=== PATIENT | female | born 2005 | race Caucasian/White ===

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

== ENCOUNTER 2023-01-23 08:26 | Outpatient (AMB) | payer BC, MEDICAID, SELFPAY ==
[2023-01-23 08:33] VITALS: BP 93/65; PULSE 95; BMI 36.1
--- NOTE | 2023-01-23 08:33 | A.OFFVIS_ITS ---
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 Patient reports that she has gone to emergency department few times for right upper quadrant pain. Patient had symptoms of severe abdominal discomfort not necessarily related to meals. Reports postprandial abdominal bloating. The pain is so severe that it causes nausea and vomiting. Patient had increase in liver enzymes that progressively increased within just couple months. Patient had normal ultrasound when reviewing her records. She had normal liver enzymes in September. On January 15 her ALT were elevated to 130 and 3 days later up to 159. Patient does report that she does not have much of appetite. She usually does not eat and then reports to occasionally binge on different food. Patient brought a list of food and meals that she has been having since her last visit in the ED. review list that was provided by the patient and noticed that patient had fairly healthy diet, however some of the food included mayonnaise fried egg, mac and cheese, long horn steak with mashed potatoes, barbecue ribs. Today patient states that she is feeling little better was prescribed sucralfate and has not started yet. Taking omeprazole on as needed basis. Patient reports that she is moving her bowels normally. However she admits that occasionally she will be constipated. Patient had a bowel movement today. Denies melena, hematochezia, unintentional weight loss or ribbon like stools. Patient denies any fever or chills. Patient was diagnosed with PCOS and was found to have large cysts on her right ovary. Patient underwent surgery. [facility] Medical History Endometriosis Surgical History Hx of ovarian cyst Family History Maternal Grandmother HTN (hypertension) High cholesterol Maternal Grandfather HTN (hypertension) High cholesterol Diabetes Cirrhosis of liver Paternal Grandmother HTN (hypertension) Social History Household Members: Family Alcohol intake: never Patient Tobacco Use Status: Never used Tobacco Review of Systems Const Denies weight gain and Denies weight loss ENT Reports no additional complaints, Denies dysphagia and Denies odynophagia Card Reports no additional complaints Resp Reports no additional complaints GI Reports abdominal pain (RUQ), Denies belching, Denies melena, Denies bloating, Denies change in bowel habits, Reports constipation, Denies dysphagia, Denies excessive flatus, Denies dyspepsia, Reports heartburn, Denies diarrhea, Denies loose stools, Reports nausea, Denies odynophagia and Reports vomiting Reports no additional complaints Musc Reports no additional complaints Neuro Reports no additional complaints Psych Reports no additional complaints Endo Reports no additional complaints Physical Exam Vital Signs: Last Vital Signs Pulse 95 01/23/23 08:33 BP 93/65 01/23/23 08:33 BMI result Body Mass Index 36.1 Const General: healthy appearing, no acute distress and well developed Nutritional Appearance: obese Orientation/consciousness: patient oriented x3 HEENT Head: Yes normal to inspection, Yes normocephalic and Yes atraumatic Face and sinus: Yes normal facial exam Mouth: Normal oral and palatal mucosa present Throat: Yes posterior oropharynx normal, Yes tonsils normal and Yes uvula midline Eyes General: appearance normal, both eyes and all related structures Neck Neck: Yes normal visual inspection, Yes full ROM and Yes trachea midline Thyroid: Thyroid normal Resp Effort & Inspection: normal respiratory effort, able to speak in complete sentences, no tracheal deviation and symmetric chest movement Auscultation: clear to auscultation bilaterally Cardio Rate: regular rate Heart sounds: S1 normal heart sound present and S2 normal heart sound present GI Inspection: Yes normal to inspection, No distended and Yes obesity Palpation (GI): Soft to palpation, not firm, nontender and No hepatosplenomegaly present Auscultation: normal bowel sounds General: Yes no CVA tenderness Back/Spine/Pelvis Back: no CVA tenderness Skin General skin exam: elasticity normal, turgor normal and dry skin Neuro General: patient oriented x3 Psych Appearance: grossly normal Mental Status: mental status grossly normal Speech and movement: Normal speech and movement present Affect: normal affect Assessment & Plan Assessment & Plan (1) RUQ abdominal pain: Code(s): R10.11 - Right upper quadrant pain Plan: Postprandial abdominal bloating. Patient reports that her pain is random does not necessarily happen after meals. Unsure if this is a biliary colic versus gas trapping pain causing cramping at hepatic flexure. Will send patient for a HIDA scan to rule out biliary dyskinesia, biliary duct occlusion. (2) Postprandial abdominal bloating: Code(s): R14.0 - Abdominal distension (gaseous) Plan: Occasional postprandial abdominal bloating depending on what she eats. Discussed with patient low FODMAP diet. List of food recommended as well as list of food to avoid given to patient (3) Epigastric discomfort: Code(s): R10.13 - Epigastric pain Plan: Continue taking sucralfate. Stop omeprazole and stabbing pantoprazole every morning half an hour before breakfast. Discussed with patient avoiding dietary triggers and late night snacking. Staying upright for minimum 3 hours after meals discussed with patient. (4) GERD (gastroesophageal reflux disease): Code(s): K21.9 - Gastro-esophageal reflux disease without esophagitis Qualifiers: Esophagitis presence: esophagitis presence not specified Qualified Code(s): K21.9 - Gastro-esophageal reflux disease without esophagitis Plan: Patient reports epigastric discomfort and reflux. Start pantoprazole. Take sucralfate at night time. Avoid NSAIDs. Dietary triggers and culprits discussed with patient. Will send patient to check her a lipase. Her last lipase was normal. Will repeat liver enzymes. If patient continues have the sy mptoms will consider checking H pylori and check for pancreatic insufficiency if she continues to be bloated and have epigastric discomfort. Patient does not have a left upper quadrant pain. Will check transglutaminase to rule out celiac. (5) IBS (irritable bowel syndrome): Code(s): K58.9 - Irritable bowel syndrome without diarrhea Qualifiers: Irritable bowel syndrome type: without diarrhea Qualified Code(s): K58.9 - Irritable bowel syndrome without diarrhea Plan: Postprandial abdominal bloating. Low FODMAP diet discussed with patient. As mentioned above list of food recommended as well as list of food to avoid given to patient. Discussed with her option of doing an elimination diet as well. Ordered MiraLax. Patient states that this helped her in the past emptying her bowels better. Patient was also encouraged to increase fluid intake and activity to promote better bowel motility. Discussed with patient weight loss and better food choices. I will see patient in 3 months, sooner on as needed basis. Both patient and her mom are agreeable this plan and verbalize understanding of instructions. They were given the opportunity to ask questions and all questions answered. Thank you for allowing me to participate in her care Orders: Orders Gamma Glutamyl Transpeptidase Today R74.8 - Abnormal levels of other serum enzymes Lipase Today R10.9 - Unspecified abdominal pain Liver Panel Today R10.9 - Unspecified abdominal pain TSH reflex Free T4 Today K59.00 - Constipation, unspecified Vitamin D 25-OH (D2 and D3) Today E55.9 - Vitamin D deficiency, unspecified Transglutaminase IgA Today R10.9 - Unspecified abdominal pain Transglutaminase Ab IgG Today R10.9 - Unspecified abdominal pain NM hepatobiliary w pharm Today R10.11 - Right upper quadrant pain Medications: New pantoprazole 20 mg PO DAILY 90 tabs 1RF polyethylene glycol 3350 (Miralax) 17 grams PO DAILY 510 grams 2RF Discontinued omeprazole Discontinued Reason: Doctor's Order 20 mg PO DAILY 30 caps 0RF Coding Level of Care Code New Pt Level 4 (56042) Diagnoses RUQ abdominal pain R10.11 Postprandial abdominal bloating R14.0 Epigastric discomfort R10.13 GERD (gastroesophageal reflux disease) K21.9 Esophagitis presence: esophagitis presence not specified IBS (irritable bowel syndrome) K58.9 Irritable bowel syndrome type: without diarrhea Time Spent (min) 45 Comment 30 minutes spent with patient and additional 15 minutes spent reviewing her records
== END 2023-01-23 09:22 | disposition home or self-care (01) ==
PROVIDERS: Visit Provider Nurse Practitioner Family
DX: R10.11 Right upper quadrant pain (principal); R14.0 Abdominal distension (gaseous); R10.13 Epigastric pain; K21.9 Gastro-esophageal reflux disease without esophagitis; K58.9 Irritable bowel syndrome, unspecified
CPT/HCPCS: 99204

== ENCOUNTER 2023-01-23 08:26 | Outpatient (REF) | payer BC, MEDICAID, SELFPAY ==
[2023-01-23 10:50] LABS: Alanine Aminotransferase 59 U/L (0-31); Albumin Level 4.1 g/dL (3.5-5.0); Alkaline Phosphatase 49 U/L (39-117); Aspartate Amino Transferase 15 U/L (5-31); Bilirubin Direct 0.2 mg/dL (0.0-0.5); Bilirubin Total 0.5 mg/dL (0.0-1.0); Lipase 18 U/L (8-78); Total Protein 7.2 g/dL (6.5-8.0)
[2023-01-23 11:01] LABS: Gamma Glutamyl Transpeptidase 28 U/L (7-33); TSH reflex Free T4 0.71 uIU/mL (0.32-4.0)
[2023-01-26 13:47] LABS: Transglutaminase Ab IgG <1.0 U/mL; Transglutaminase IgA <1.0 U/mL
[2023-01-28 16:42] LABS: Vitamin D 25-OH, D2 <4 ng/mL; Vitamin D 25-OH, D3 22 ng/mL; Vitamin D 25-OH, Total 22 ng/mL (30-100)
== END 2023-01-23 08:27 | disposition home or self-care (01) ==
LOC: HO.LAB 08:26
PROVIDERS: Visit Provider Nurse Practitioner Family
DX: R10.11 Right upper quadrant pain (principal); R14.0 Abdominal distension (gaseous); R10.13 Epigastric pain; K21.9 Gastro-esophageal reflux disease without esophagitis; K58.9 Irritable bowel syndrome, unspecified; K59.00 Constipation, unspecified; E55.9 Vitamin D deficiency, unspecified; R74.8 Abnormal levels of other serum enzymes
CPT/HCPCS: 36415; 80076; 82306; 82977; 83690; 84443; 86364

== ENCOUNTER 2023-02-09 12:26 | Outpatient (AMB) | payer BC, MEDICAID, SELFPAY ==
[2023-02-09 12:35] VITALS: BP 101/72; PULSE 130; BMI 35.5
--- NOTE | 2023-02-09 12:35 | MHC.OFFVIS ---
Intake Vital Signs 02/09/23 12:35 Height 5 ft 3 in Weight 200 lb 9.93 oz BMI 35.5 BP 101/72 Blood Pressure Location Lt brachial Position Sitting Pulse 130 H Intake Visit Reasons: follow up Intake Note: Eitan presents in office as a new.patient for a abdominal pain elevated liver enzymes PT CC: Patient was seen to the ER yesterday and diagnosed with mesenteric lymphadenitis. PT reports having abdominal, constipation, bloating, vomiting and nausea. Denies other GI symptoms. 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 Patient reports that her pain is random does not necessarily happen after meals.? Unsure if this is a biliary colic versus gas trapping pain causing cramping at hepatic flexure.? Will send patient for a HIDA scan to rule out biliary dyskinesia, biliary duct occlusion. (2) Postprandial abdominal bloating: ?Code(s): R14.0 - Abdominal distension (gaseous) ?Plan: Occasional postprandial abdominal bloating depending on what she eats.? Discussed with patient low FODMAP diet.? List of food recommended as well as list of food to avoid given to patient (3) Epigastric discomfort: ?Code(s): R10.13 - Epigastric pain ?Plan: Continue taking sucralfate.? Stop omeprazole and stabbing pantoprazole every morning half an hour before breakfast.? Discussed with patient avoiding dietary triggers and late night snacking.? Staying upright for minimum 3 hours after meals discussed with patient. (4) GERD (gastroesophageal reflux disease): ?Code(s): K21.9 - Gastro-esophageal reflux disease without esophagitis ?Qualifiers: ?Esophagitis presence:?esophagitis presence not specified? Qualified Code(s):?K21.9 - Gastro-esophageal reflux disease without esophagitis ?Plan: Patient reports epigastric discomfort and reflux.? Start pantoprazole.? Take sucralfate at night time.? Avoid NSAIDs.? Dietary triggers and culprits discussed with patient.? Will send patient to check her a lipase.? Her last lipase was normal.? Will repeat liver enzymes.? If patient continues have the symptoms will consider checking H pylori and check for pancreatic insufficiency if she continues to be bloated and have epigastric discomfort.? Patient does not have a left upper quadrant pain.? Will check transglutaminase to rule out celiac. (5) IBS (irritable bowel syndrome): ?Code(s): K58.9 - Irritable bowel syndrome without diarrhea ?Qualifiers: ?Irritable bowel syndrome type:?without diarrhea? Qualified Code(s):?K58.9 - Irritable bowel syndrome without diarrhea ?Plan: Postprandial abdominal bloating.? Low FODMAP diet discussed with patient.? As mentioned above list of food recommended as well as list of food to avoid given to patient.? Discussed with her option of doing an elimination diet as well.? Ordered MiraLax.? Patient states that this helped her in the past emptying her bowels better.? Patient was also encouraged to increase fluid intake and activity to promote better bowel motility.? Discussed with patient weight loss and better food choices.? I will see patient in 3 months, sooner on as needed basis.? Both patient and her mom are agreeable this plan and verbalize understanding of instructions.? They were given the opportunity to ask questions and all questions answered.? TODAY'S VISIT Patient is here today for requested visit after being seen in the emergency department at [facility] yesterday. Patient has severe abdominal discomfort, nausea, unable to move her bowels for the last 4 days. When seen in the ER yesterday patient received pain medication, sent home with do a lax. CT scan showed right-sided mesenteric adenitis, mild intestinal ileus and large ovarian cyst. Patient had as mentioned on previous visits right ovarian cyst surgery twice in September and October. Pain could be related to adhesions. Patient did not had ultrasound yesterday. Ultrasound in August did not show any cyst on her left ovary. Ultrasound in December was done limited of the gallbladder only. Patient has a history of spina bifida and has most likely always had decreased motility of her bowels. Patient is here with her mother who is a nurse practitioner and is very concerned about her daughter's health. Patient denies acid reflux, dyspepsia, dysphagia or odynophagia. Denies melena, hematochezia, unintentional weight loss or ribbon like stools. When seen in the ER yesterday patient was recommended by provider there to be admitted for observation, however patient declined as she was hoping she will have bowel movement and will start feeling better. REPLACED BY [facility] Medical History Endometriosis Surgical History Hx of ovarian cyst Family History Maternal Grandmother HTN (hypertension) High cholesterol Maternal Grandfather HTN (hypertension) High cholesterol Diabetes Cirrhosis of liver Paternal Grandmother HTN (hypertension) Social History Household Members: Family Alcohol intake: never Patient Tobacco Use Status: Never used Tobacco Review of Systems Const Denies weight gain and Denies weight loss ENT Reports no additional complaints, Denies dysphagia and Denies odynophagia Card Reports no additional complaints Resp Reports no additional complaints GI Reports abdominal pain, Denies belching, Denies melena, Reports bloating, Denies change in bowel habits, Reports constipation, Denies dysphagia, Denies excessive flatus, Denies dyspepsia, Denies heartburn, Denies diarrhea, Denies loose stools, Reports nausea, Denies odynophagia and Denies vomiting Reports no additional complaints Musc Reports no additional complaints Neuro Reports no additional complaints Psych Reports no additional complaints Endo Reports no additional complaints Physical Exam Vital Signs: Last Vital Signs Pulse 130 H 02/09/23 12:35 BP 101/72 02/09/23 12:35 BMI result Body Mass Index 35.5 Const General: healthy appearing, no acute distress and well developed Nutritional Appearance: obese Orientation/consciousness: patient oriented x3 HEENT Head: Yes normal to inspection, Yes normocephalic and Yes atraumatic Face and sinus: Yes normal facial exam Mouth: Normal oral and palatal mucosa present Throat: Yes posterior oropharynx normal, Yes tonsils normal and Yes uvula midline Eyes General: appearance normal, both eyes and all related structures Neck Neck: Yes normal visual inspection, Yes full ROM and Yes trachea midline Thyroid: Thyroid normal Resp Effort & Inspection: normal respiratory effort, able to speak in complete sentences, no tracheal deviation and symmetric chest movement Auscultation: clear to auscultation bilaterally Cardio Rate: regular rate Heart sounds: S1 normal heart sound present and S2 normal heart sound present GI Inspection: Yes normal to inspection, No distended and Yes obesity Palpation (GI): Soft to palpation, not firm, nontender and No hepatosplenomegaly present Auscultation: normal bowel sounds (LUQ, LLQ) and Hypoactive bowel sounds present (RL/UQ) General: Yes no CVA tenderness Back/Spine/Pelvis Back: no CVA tenderness Skin General skin exam: elasticity normal, turgor normal and dry skin Neuro General: patient oriented x3 Psych Appearance: grossly normal Mental Status: mental status grossly normal Speech and movement: Normal speech and movement present Affect: normal affect Attitude: cooperative Thought process: Normal thought process present Thought content: Normal thought content present Insight: Good insight present (Psych) Judgement: Good judgement present (Psych) Assessment & Plan Assessment & Plan (1) RUQ abdominal pain: Code(s): R10.11 - Right upper quadrant pain Plan: Right-sided abdominal pain, however today patient reports that her pain is throughout the whole abdomen. Awaiting to get a HIDA scan, however I feel that her pain is related possibly to adhesions from to laparoscopic surgeries just few months ago. Patient was encouraged to side dicyclomine due to her decreased bowel mobility. (2) Postprandial abdominal bloating: Code(s): R14.0 - Abdominal distension (gaseous) Plan: Postprandial abdominal bloating most likely related to inability to move her bowels. Patient does have a positive bowel sounds in the left upper and left lower quadrant diminished in the right upper and right lower quadrant. Patient is passing gas able to have a small amount of stool, incomplete emptying for the last 4 days (3) Mesenteric adenitis: Code(s): I88.0 - Nonspecific mesenteric lymphadenitis Plan: Mesenteric adenitis, reviewed results posted on patient's portal that and does not mention that, however patient instructions states that she does have a mesenteric adenitis. Patient's mother will try to get the results and CD from [facility]. Patient reports that provider spoke to radiologist on the phone about her results. If patient continues with pain she will need to return to emergency department especially if she is not going to have a bowel movement. (4) Ileus: Code(s): K56.7 - Ileus, unspecified Plan: Ileus was also reported on the CT scan. Secondary to pain or possibly due to adhesions that could be causing that as well. Patient will need to move her bowels better. Will start her on Reglan, patient is to be on clear liquid diet and take Reglan twice a day for the next couple days before meals. Patient will also take milk of magnesia and take Linzess. However patient was instructed to drink plenty fluids. Patient ready took Senokot in Dulcolax and was unable to pass bowels. Patient was instructed that she must go to the emergency department if she is continuing to be nauseous and vomiting and is unable to pass gas. (5) Chronic idiopathic constipation: Code(s): K59.04 - Chronic idiopathic constipation Plan: Chronic constipation, not on any actual daily management. I believe patient should be on something every day, however today she presents as more acute. Will need to take Reglan to help stimulate her small bowel avoid taking Zofran as that can contribute to constipation and could also cause ileus. (6) Epigastric pain: Code(s): R10.13 - Epigastric pain Plan: Patient continues with epigastric pain, however does not have any acid reflux or dyspepsia. Patient will be scheduled for upper endoscopy on Sunday. Continue pantoprazole (7) Nausea and vomiting in adult: Code(s): R11.2 - Nausea with vomiting, unspecified Plan: Reglan twice a day, N/V most likely related to inability to pass her bowels, however it could be related to gastritis, patient is going for upper endoscopy on Sunday. Patient and her mom were instructed to return to emergency department if she continues to have nausea and vomiting, unable to keep any fluids down. Unable to move her bowels, decrease gas, increase bloating. Both patient and her mom are agreeable to plan of care and verbalize understanding of instructions. They were given the opportunity to ask questions and all questions answered. Thank you for allowing me to participate in her care Medications: New metoclopramide HCl (Reglan) Take 15 minutes before meals 5 mg PO BID PRN 10 tabs 0RF nausea and vomiting R11.0 - Nausea linaclotide (Linzess) 145 mcg PO DAILY 30 caps 2RF Coding Level of Care Code Est Pt Level 5 (15523) Diagnoses RUQ abdominal pain R10.11 Postprandial abdominal bloating R14.0 Mesenteric adenitis I88.0 Ileus K56.7 Chronic idiopathic constipation K59.04 Epigastric pain R10.13 Nausea and vomiting in adult R11.2 Time Spent (min) 50 Comment 30 minutes spent with patient and additional 20 minutes spent reviewing her records
== END 2023-02-09 13:22 | disposition home or self-care (01) ==
PROVIDERS: Visit Provider Nurse Practitioner Family
DX: I88.0 Nonspecific mesenteric lymphadenitis (principal); K56.7 Ileus, unspecified; K59.04 Chronic idiopathic constipation; R11.2 Nausea with vomiting, unspecified
CPT/HCPCS: 99213

== ENCOUNTER → 2023-02-09 12:26 | Outpatient (BNVA) | payer BC, MEDICAID, SELFPAY | PROVIDERS: Visit Provider Nurse Practitioner Family ==

== ENCOUNTER 2023-02-09 17:44 | Emergency (ER) | payer BC, MEDICAID, SELFPAY ==
--- NOTE | 2023-02-09 17:56 | ED_ITS ---
patient left after initial evaluation I did not see the patient HPI - General Adult General Chief complaint: Abdominal Pain Stated complaint: abd pain, seen by GI today. Related Data Previous Rx's Medication Instructions Recorded ibuprofen 800 mg tablet 800 mg PO Q8H PRN pain #30 tabs 08/09/22 pantoprazole 20 mg tablet,delayed 20 mg PO DAILY #90 tabs 01/23/23 release polyethylene glycol 3350 17 17 g PO DAILY #510 grams 01/23/23 gram/dose oral powder (Miralax) ondansetron 4 mg disintegrating 4 mg PO Q8H PRN nausea and 02/07/23 tablet vomiting #14 tabs sennosides 8.6 mg tablet (Natural 8.6 mg PO BEDTIME constipation #90 02/07/23 Senna Laxative) tabs linaclotide 145 mcg capsule 145 mcg PO DAILY #30 caps 02/09/23 (Linzess) metoclopramide HCl 5 mg tablet 5 mg PO BID PRN nausea and 02/09/23 (Reglan) vomiting #10 tabs Allergies Allergy/AdvReac Type Severity Reaction Status Date / Time No Known Allergies Allergy Verified 01/23/23 08:34 [facility] Past Medical History Medical History Endometriosis Surgical History Hx of ovarian cyst Family History Family History Maternal Grandmother HTN (hypertension) High cholesterol Maternal Grandfather HTN (hypertension) High cholesterol Diabetes Cirrhosis of liver Paternal Grandmother HTN (hypertension) Social History Social History Household Members: Family Alcohol intake: never Patient Tobacco Use Status: Never used Tobacco Advance Directives: No Advance Directives Information Provided: No Physical Exam ED Vital Signs: BMI result Body Mass Index 35.4 Course Course Course Narrative: This is a rapid medical exam: Additional HPI, ROS, PE not included below will be deferred to primary provider. Patient is a 17-year-old female presenting to the emergency department with mother complaining of abdominal pain and nausea. Was seen at [facility], diagnosed with mild ileus/mesenteric lymphadenitis. Saw GI today, started on Linzess, has been using senna and reglan without relief. Also has an 8cm ovarian cyst. Mother reports patient has been unable to pass gas today. Plan: labs, Medical Decision Making Lab Data 02/09/23 20:21 02/09/23 20:21 Labs: Lab Results 02/09/23 02/09/23 Range/Units 20:21 20:21 WBC 11.2 H (4.8-10.8) X10*3/uL RBC 4.59 (4.20-5.50) X10*6/uL Hgb 13.5 (12.0-16.0) g/dl Hct 38.2 (37.0-47.0) % MCV 83.2 (80.0-98.0) fL MCH 29.4 (27.0-33.0) pg MCHC 35.3 H (31.0-35.0) g/dl RDW 12.1 (11.0-16.0) % Plt Count 173 (160-400) X10*3/uL MPV 12.4 H (9.4-12.3) fL Immature Gran % (Auto) 0.3 (0.0-0.4) % Neut % (Auto) 62.5 (45-73) % Lymph % (Auto) 26.7 (20-40) % [place] % (Auto) 9.2 (2-11) % Eos % (Auto) 0.9 (0-4) % Baso % (Auto) 0.4 (0-2) % Lymph # (Auto) 3.0 (1.2-4.9) X10*3/uL [place] # (Auto) 1.0 (0.1-1.2) X10*3/uL Eos # (Auto) 0.1 (0.0-0.4) X10*3/uL Baso # (Auto) 0.1 (0.0-0.2) X10*3/uL Abs Immat Gran (auto) 0.03 (0.00-0.03) X10*3/uL Absolute Neuts (auto) 7.0 (2.0-8.3) x10*3/uL Absolute Nucleated RBC 0.000 (0.0-0.012) X10*3/uL Nucleated RBC % (auto) 0.0 (0.0-0.2) /100WBC Sodium 141 (135-145) mmol/L Potassium 3.8 (3.3-5.1) mmol/L Chloride 105 (96-108) mmol/L Carbon Dioxide 21 L (22-29) mmol/L Anion Gap 19 (12-20) BUN 9 (9-16) mg/dL Creatinine 0.77 (0.5-1.4) mg/dL Estim Creat Clear Calc 125.6 Estimated GFR > 60 Random Glucose 85 (60-115) mg/dL Calcium 9.8 (8.4-10.2) mg/dL Total Bilirubin 0.5 (0.0-1.0) mg/dL AST 18 (5-31) U/L ALT 31 (0-31) U/L Alkaline Phosphatase 52 (39-117) U/L Total Protein 7.7 (6.5-8.0) g/dL Albumin 4.4 (3.5-5.0) g/dL Beta HCG, Quant < 2 mIU/mL Discharge Plan Discharge Clinical Impression: Abdominal pain Patient Disposition: Elopement Prescriptions: No Action sennosides [Natural Senna Laxative] 8.6 mg tablet 8.6 mg PO BEDTIME Qty: 90 3RF ondansetron 4 mg tablet,disintegrating 4 mg PO Q8H PRN (Reason: nausea and vomiting) Qty: 14 0RF ibuprofen 800 mg tablet 800 mg PO Q8H PRN (Reason: pain) Qty: 30 0RF pantoprazole 20 mg tablet,delayed release (DR/EC) 20 mg PO DAILY Qty: 90 1RF polyethylene glycol 3350 [Miralax] 17 gram/dose powder 17 g PO DAILY Qty: 510 2RF metoclopramide HCl [Reglan] 5 mg tablet 5 mg PO BID PRN (Reason: nausea and vomiting) Qty: 10 0RF Rx Instructions: Take 15 minutes before meals Linzess 145 mcg capsule 145 mcg PO DAILY Qty: 30 2RF Interventions: LWBS Worksheet Last Done: 02/09/23 22:45 Discharge Date/Time: 02/09/23 22:45
[2023-02-09 18:00] VITALS: BP 114/88; PULSE 90; RESP 18; TEMP 36.9; O2SAT 99; BMI 35.4
--- OUTSIDE RECORDS SUMMARY | 2023-02-09 19:48 | XMS_ITS | Continuity of Care Document ---
Author Name Unknown Organization [facility] al Address [address] [place] [address]- Care Team Providers Care Affiliate Marketing Manager Name Role Phone Not on Staff, PCP Primary Care Physician Unavail able Encounter [facility] Date(s): 02/07/23 - 02/08/[address] [address]- Discharge Disposition: A-D/C Home Attending Physician: Elba DESAI, Lluvia Anderson Admitting Physician: Lluvia Arreola MD Referring Physician: Not on Staff, Referring MD Allergies, Adverse Reactions, Alerts Substance Reaction Severity Status No known medicine allergy Ac tive Immunizations Given and Recorded Vaccine Date Status Refusal Reason influ virus vac, H1N1, inactive(oldterm) 09/13/09 Given influ virus vac, H1N1, inactive(oldterm) 08/05/09 Given Varicella Virus Vaccine 08/05/09 Given Varicella Virus Vaccine 1 04/06/04 Given Influenza Vaccine (oldterm) 08/05/09 Given influenza virus vaccine, inactivated 2 05/21/08 Gi doug influenza virus vaccine, inactivated 3 04/26/07 Gi doug Poliovirus Vaccine, Inactivated 04/26/07 Given Poliovirus Vaccine, Inactivated 4 03 Given Poliovirus Vaccine, Inactivated 5 03 Given Poliovirus Vaccine, Inactivated 6 03 Given Measles/Mumps/Rubella Virus Vaccine 04/26/07 Given Measles/Mumps/Rubella Virus Vaccine 7 04/06/04 Giv en Diphth/Pertussis,Acel/Tetanus (oldterm) 04/26/07 G iven Haemophilus B Conj Vaccine (oldterm) 8 08/16/04 Gi doug Haemophilus B Conj Vaccine (oldterm) 9 03 Gi doug Haemophilus B Conj Vaccine (oldterm) 10 03 G iven Haemophilus B Conj Vaccine (oldterm) 11 03 G iven Influenza Inactive (IM) (oldterm) 08/16/04 Given diphtheria/tetanus/pertussis, acel(DTaP) 12 08/16/04 Given diphtheria/tetanus/pertussis, acel(DTaP) 13 03 Given diphtheria/tetanus/pertussis, acel(DTaP) 14 03 Given diphtheria/tetanus/pertussis, acel(DTaP) 15 03 Given Pneumococcal Conjugate (PCV7) (oldterm) 16 07/06/04 Given Pneumococcal Conjugate (PCV7) (oldterm) 17 03 Given Pneumococcal Conjugate (PCV7) (oldterm) 18 03 Given Hepatitis B Vaccine (old term) 19 03 Given Hepatitis B Vaccine (old term) 20 03 Given Hepatitis B Vaccine (old term) 21 03 Given 1Admin Note: IZABELLA 2Admin Note: SANOFI 3Admin Note: SANOFI 4Admin Note: IPV 5Admin Note: IPV 6Admin Note: IPV 7Admin Note: MMR 8Admin Note: HIB 9Admin Note: HIB 10Admin Note: HIB 11Admin Note: HIB 12Admin Note: DTAP 13Admin Note: DTAP 14Admin Note: DTAP 15Admin Note: DTAP 16Admin Note: PCV7 17Admin Note: PCV7 18Admin Note: PCV7 19Admin Note: HEP B 20Admin Note: HEP B 21Admin Note: HEP B Medications Aerochamber See Instructions, # 2 each, Refills 1, Tot. Refills 1, use with albuterol; take one puff through spacer, breath in and hold, wait 1 minute then repeat, asthma; please dispense 2 (one for home and onefor school), 08/05/09 15:21:15, [facility], Milena, S... Start Date: 08/05/09 Status: Ordered albuterol CFC free 90 mcg/inh inhalation aerosol 2 puffs, Inhalation, 4 times a day, PRN for wheezing, # 2 each, 0 Refills, Maintenance, Aerosol Start Date: 05/30/10 Status: Ordered Claritin 5 mg oral tablet, chewable 2 tablet = 10 mg, Chew, Every 24 hours, # 60 tablet, 6 Refills Start Date: 01/04/09 Stop Date: 02/02/09 Status: Ordered MorPHINE Inj 8 mg, Injection, Intramuscular, Once, Hold for: SBP <90, *or* SpO2 <90, *or* Resp rate <10, PRN for Other, Pain >4/10, STAT, 02/08/23 5:00:00 EDT Start Date: 02/08/23 Stop Date: 02/08/23 Status: Completed multivitamin with fluoride Multiple Vitamins with Fluoride 0.5 mg oral tablet, chewable 1 tablet, Chew, Daily, # 100 tablet, 3 Refills, Maintenance, Chew Tablet Start Date: 10/26/10 Status: Ordered multivitamin with fluoride Multiple Vitamins with Fluoride 1 mg oral tablet, chewable 1 tablet, Chew, Daily, # 90 tablet, 3 Refills, Chew Tablet Start Date: 08/05/09 Stop Date: 09/04/09 Status: Ordered Nix Cream Rinse 1% solution 1 application, Topically, Once, to clean hair and scalp, leave in for 10 minutes then rinse with water, # 60 mL, 1 Refills, Maintenance, Solution Start Date: 03/22/11 Status: Ordered ProAir HFA 90 mcg/inh inhalation aerosol with adapter 2 puffs, Inhalation, Every 4 to 6 hours, PRN Wheezing/Shortness of Breath, # 2 each, 1 Refills, asthma; please dispense 2 (one for home and one for school) Start Date: 08/05/09 Stop Date: 09/04/09 Status: Ordered Problem List Condition Confirmation Course Effective Dates Status Health St atus Informant Allergic rhinitis Confirmed Active Asthma Confirmed Active Results Radiology Reports * Exam Date Time Procedure Performing Provider Status 02/08/23 5:[address] Abdomen and Pelvi s W/O Contrast Marita Mendoza; Aleksander (Verified) Notes: (CT Abdomen and Pelvis W/O Contrast) Reason For Exam: right sided abd pain;Pain RESULT: CT Abdomen and Pelvis W/O Contrast CT Abdomen and Pelvis W/O Contrast INDICATION/CLINICAL QUESTION: Low back pain. Abdominal pain. TECHNIQUE: Spiral CT through the abdomen and pelvis without IV contrast formatted in 3 planes. The study was performed without oral contrast. Weight- based protocol using automatic tube modulation wasused to optimize exposure parameters. CTDIvol Body: 17.66 mGy, DLP Body: 869 mGy*cm. COMPARISON: 02/14/2022 FINDINGS: Nurse Researcher View Findings, Lines and Tubes: None.. Lower chest: There are no pleural effusions. There is no pericardial effusion. Diaphragm: Unremarkable. Liver: Normal. . Gallbladder: Normal size. No calcified stones.. Bile ducts: No intra or extra hepatic bile duct dilation. . Spleen: Normal. Pancreas: Normal. Adrenal Glands: Normal. Kidneys: Right Kidney: Normal. Left Kidney: Normal. Bladder: Normal. Blood vessels: No aneurysm of abdominal aorta or iliac arteries. . Stomach, Small bowel and Large Bowel: Stomach: No gross abnormality seen. Small Bowel: No small bowel dilatation or gross inflammatory change. Large Bowel: No large bowel dilatation or gross inflammatory change. The Appendix is normal. Reproductive/Pelvic organs: There is no pelvic mass or fluid collection. Peritoneum, Retroperitoneum, Omentum, and Mesentery: There is no free air. There is no ascites. Lymph nodes: No adenopathy. Abdominal wall: No abdominal wall hernia. Bones: No compression fracture, spondylolysis, or spondylolisthesis. No fracture or bony pelvis and proximal femurs. IMPRESSION: 1. No acute abnormality seen that would explain patient's symptoms. WSN: [id number] Ordering Physician: Lluvia Arreola Dictated By: Lakhwinder Monge MD Dictated Date/Time: 02/08/23 7:40 am Reviewed By: Lakhwinder Monge MD Signed By: Lakhwinder Monge MD Signed Date/Time: 02/08/23 7:40 am Transcribed By: DIDI Transcribed Date/Time: 02/08/23 7:30 am Vital Signs Most recent to oldest [Reference Range]: 1 2 3 Height 160 cm (02/08/23 6:11 AM) 160 cm (02/08/23 5:09 AM) 160 cm (02/08/23 2:20 AM) Weight 91.9 kg (02/08/23 6:11 AM) 91.9 kg (02/08/23 5:09 AM) 91.9 kg (02/08/23 2:20 AM) Oxygen Saturation [94-100 %] 99 % (02/08/23 6:11 AM) 98 % (02/08/23 5:09 AM) 99 % (02/08/23 2:20 AM) Pulse Rate [55-90 bpm] 74 bpm (02/08/23 6:11 AM) 78 bpm (02/08/23 5:09 AM) 81 bpm (02/08/23:20 AM) Body Mass Index [18.5-24.99 kg/m2] 35.9 kg/m2 *>HHI* (02/08/23 6:11 AM) 35.9 kg/m2 *>HHI* (02/08/23 5:09 AM) 35.9 kg/m2 *>HHI* (02/08/23:20 AM) Blood Pressure [90-138/55-84 mm Hg] 114/72mm Hg (02/08/23 6:11 AM) 108/74mm Hg (02/08/23:09 AM) 120/86mm Hg (02/08/23:20 AM) Respiratory Rate [16-30 br/min] 15 br/min *L* (02/08/23 6:11 AM) 15 br/min *L* (02/08/23 5:37 AM) 15 br/min *L* (02/08/23 5:09 AM) Temperature [96.8-100.4 DegF] 98.1 DegF (02/08/23 6:11 AM) 98.1 DegF (02/08/23 5:09 AM) 98.1 DegF (02/08/23 2:05 AM) Mode of Delivery (Oxygen) Room air (02/08/23 6:11 AM) Room air (02/08/23 5:09 AM) Room air (02/08/23:20 AM) Blood pressure sites Arm, left (02/08/23 6:11 AM) Arm, left (02/08/23 5:09 AM) Arm, left (02/08/23 2:20 AM) Temperature Route Oral (02/08/23 6:11 AM) Oral (02/08/23 5:09 AM) Oral (02/08/23:20 AM) Dry Weight 91.9 kg (02/08/23 6:11 AM) 91.9 kg (02/08/23 5:09 AM) 91.9 kg (02/08/23 2:20 AM) Height Percentile 30.37 % 1 (02/08/23 6:11 AM) 30.37 % 2 (02/08/23 5:09 AM) 30.37 % 3 (02/08/23 2:20 AM) Height ZScore -0.51 4 (02/08/23 6:11 AM) -0.51 5 (02/08/23 5:09 AM) -0.51 6 (02/08/23 2:20 AM) Weight Percentile Per Age 97.61 % 7 (02/08/23 6:11 AM) 97.61 % 8 (02/08/23 5:09 AM) 97.61 % 9 (02/08/23 2:20 AM) BMI Percentile 97.37 10 (02/08/23 6:11 AM) 97.37 11 (02/08/23 5:09 AM) 97.37 12 (02/08/23 2:20 AM) BMI ZScore 1.94 13 (02/08/23 6:11 AM) 1.94 14 (02/08/23 5:09 AM) 1.94 15 (02/08/23 2:20 AM) Weight ZScore 1.98 16 (02/08/23 6:11 AM) 1.98 17 (02/08/23 5:09 AM) 1.98 18 (02/08/23 2:20 AM) 1Result Comment: ^~:!Percentile Source -CDC/WHO 2Result Comment: ^~:!Percentile Source -CDC/WHO 3Result Comment: ^~:!Percentile Source -CDC/WHO 4Result Comment: ^~:!ZScore Source -CDC/WHO 5Result Comment: ^~:!ZScore Source -CDC/WHO 6Result Comment: ^~:!ZScore Source -CDC/WHO 7Result Comment: ^~:!Percentile Source -CDC/WHO 8Result Comment: ^~:!Percentile Source -CDC/WHO 9Result Comment: ^~:!Percentile Source -CDC/WHO 10Result Comment: ^~:!Percentile Source -CDC/WHO 11Result Comment: ^~:!Percentile Source -CDC/WHO 12Result Comment: ^~:!Percentile Source -CDC/WHO 13Result Comment: ^~:!ZScore Source -CDC/WHO 14Result Comment: ^~:!ZScore Source -CDC/WHO 15Result Comment: ^~:!ZScore Source -[facility]/WHO 16Result Comment: ^~:!ZScore Source -[facility]/WHO 17Result Comment: ^~:!ZScore Source -[facility]/WHO 18Result Comment: ^~:!ZScore Source -[facility]/WHO Social History Social History Type Response Smoking Status Never (less than 100 in lifetime) entered on: 02/14/22 Sex Note * Elba DESAI, Lluvia Anderson: PERFORM Event Display: Patient Education Leaflets Authored Date: [id number] Mesenteric Adenitis ?? [id number] Mesenteric Adenitis The mesentery is a sheet of tissue that attaches the intestines to the belly (abdominal) wall. Lymph nodes are small glands throughout the body. They are part of the system that fights infection. Mesenteric adenitis is swelling of the lymph nodes in the mesentery. It's also called mesenteric lymphadenitis.??The problem is caused by an infection, or an inflammatory condition,??often of the intestines. Mesenteric adenitis can cause these symptoms: ??? Severe pain in the abdomen, which can be all over ??? Pain can be in the lower right side, sometimes mimicking appendicitis ??? Nausea and vomiting ??? Diarrhea ??? Fever ??? Loss of appetite ???Malaise This condition can be hard??to diagnose because the pain is often??not just in one spot. You may need tests for this reason. Sometimes, the pain shifts to the lower right part of your abdomen. When this happens, it may seem like appendicitis. This is another reason for testing. The problem most often goes away in a few days up to a few weeks. If you have a bacterial infection, you may need to take antibiotics. Medicines may also be given to help relieve pain until the problem calms down. If symptoms don't go away, you may need more testing. Home care ??? Your healthcare provider may prescribe medicines for pain, nausea, or infection. Follow the healthcare provider's instructions when using these medicines. If you are given medicine for infection, take all of it as directed until it's gone, even if you feel better. ??? Rest until you feel better. ??? To help relieve abdominal pain, use a heating pad or hot water bottle, or soak a towel in warm water and place it on your belly. ??? If you have had diarrhea or vomiting, follow the guidelines you are given for what to eat and drink and what to avoid. ??? Drink plenty of fluids. ??? Don???t smoke or drink alcohol. ?? Follow-up care Follow up with your healthcare provider, or??as advised. It's often very hard to tell mesenteric adenitis apart from appendicitis. So close follow-up is needed. If X-rays or other tests such as ultrasound or CT scan were done,??a radiologist will look at them.You'll be told if there are changes. Call 911 Call 911 if any of these occur: ??? Trouble breathing ??? Confusion ??? Very drowsy or trouble waking up ??? Fainting or loss of consciousness ??? Fast heart rate? Chest pain ?? When to get medical advice Call your healthcare provider right away if any of these occur: ??? Fever of 100.4??F (38??C) or higher, or as directed by your provider ??? Pain not relieved with medicine, or pain that goes away and returns ??? Pain that gets worse over time or changes location ??? Pain that localizes to the right lower belly, and doesn't get better or gets worse ??? Severe diarrhea or vomiting ??? Severe headache ??? Few or no stools or gas ??? Little or no urine ??? Leg or foot cramps ??? Small, dark red dots on the skin ??? Belly swelling ??? Bloody stools? Last Reviewed Date: 2021 ?? 7517-5230 The [employer]. All rights reserved. This information is not intended as a substitute for professional medical care. Always follow your healthcare professional's instructions. ?? Patient Care team information Care Team Personnel Name: Not on Staff, PCP Position: [facility] Physician (General Medicine) Member Role: PCP Name: Elba DESAI, Lluvia Anderson Position: [facility] ED Medicine MD Member Role: Admitting Physician Address: Address: [address] [place] [id number]- Name: Brittani Zapata Position: [facility] ED TA [facility] Member Role: Patient Care Provider Name: Maynor RN, Sacha Knight Position: [facility] ED RN W/OE and Tasks Member Role: Patient Care Provider Care Team Related Persons Name: PRANAV BARGER Address: [address] [place] [address] Name: TANVIR ROTH Address: [address] [address]
[2023-02-09 20:26] LABS: MANUAL DIFF FLAG NO
[2023-02-09 20:46] LABS: Basophils Absolute Auto 0.1 X10*3/uL (0.0-0.2); Basophils Percent Auto 0.4 % (0-2); Eosinophils Absolute Auto 0.1 X10*3/uL (0.0-0.4); Eosinophils Percent Auto 0.9 % (0-4); Hematocrit 38.2 % (37.0-47.0); Hemoglobin 13.5 g/dl (12.0-16.0); Imm Gran Abs Auto 0.03 X10*3/uL (0.00-0.03); Imm Gran Pct Auto 0.3 % (0.0-0.4); Lymphocytes Percent Auto 26.7 % (20-40); Mean Corpuscular HGB Conc 35.3 g/dl (31.0-35.0); Mean Corpuscular Hemoglobin 29.4 pg (27.0-33.0); Mean Corpuscular Volume 83.2 fL (80.0-98.0); Mean Platelet Volume 12.4 fL (9.4-12.3); Monocytes Percent Auto 9.2 % (2-11); Neutrophils Percent Auto 62.5 % (45-73); Platelet Count 173 X10*3/uL (160-400); Red Blood Count 4.59 X10*6/uL (4.20-5.50); Red Cell Distribution Width 12.1 % (11.0-16.0); White Blood Count 11.2 X10*3/uL (4.8-10.8)
[2023-02-09 21:02] LABS: Alanine Aminotransferase 31 U/L (0-31); Albumin Level 4.4 g/dL (3.5-5.0); Alkaline Phosphatase 52 U/L (39-117); Anion Gap 19 (12-20); Aspartate Amino Transferase 18 U/L (5-31); Bilirubin Total 0.5 mg/dL (0.0-1.0); Blood Urea Nitrogen 9 mg/dL (9-16); Calcium 9.8 mg/dL (8.4-10.2); Carbon Dioxide 21 mmol/L (22-29); Chloride 105 mmol/L (96-108); Creatinine Clr Calc Pharmacy 125.6; Estimated Glomerular Filt Rate > 60; Glucose Random 85 mg/dL (60-115); HCG Quantitative < 2 mIU/mL; Potassium 3.8 mmol/L (3.3-5.1); Sodium 141 mmol/L (135-145); Total Protein 7.7 g/dL (6.5-8.0)
== END 2023-02-09 22:45 | disposition left against medical advice (07) ==
PROVIDERS: Registered Nurse Emergency; Emergency Provider Emergency Medicine
DX: R10.9 Unspecified abdominal pain (principal); Z79.899 Other long term (current) drug therapy
CPT/HCPCS: 36415; 80053; 84702; 85025; 99281; 99283

== ENCOUNTER 2023-02-12 11:55 | Day surgery (SDC) | payer BC, MEDICAID, SELFPAY ==
[2023-02-12 12:18] VITALS: BP 119/65; PULSE 81; RESP 16; TEMP 36.7; O2SAT 97; BMI 35.4
[2023-02-12] MEDS: Lactated Ringers 1,000 ML 100 ML IVCONT (12:44)
[2023-02-12 12:56] LABS: UPreg QC Valid YES; Urine Pregnancy NEGATIVE (NEGATIVE)
--- NOTE | 2023-02-12 12:58 | MHC.SHP ---
Pre-Procedural Eval Section A Date of Service: 02/12/23 Changes since office visit: Yes Patient answered all questions; No Cold of Flu in the past 2 weeks, No New Medical Problems and No Changes in Medication The History & Physical has been completed within 30 days and I have reviewed it.: Yes Section B Chief Complaint: Epigastric pain Allergies: Allergies Allergy/AdvReac Type Severity Reaction Status Date / Time No Known Allergies Allergy Verified 01/23/23 08:34 Plan Diagnosis/Plan: Change (proceed with EGD) I have reviewed the history and physical and performed a pertinent physical examination on my patient. No changes have occurred unless specified. Time Spent With Patient Time: Total time managing care of this patient today ____ minutes.
--- NOTE | 2023-02-12 13:01 | P.CONAN_ITS ---
[facility] Active Problems Active Problems: All Active Problems (Updated 02/12/23 @ 07:09 by Arianna Hooper NP) Abdominal pain (Acute) Past Medical History Medical History Endometriosis Functional capacity: bed bound Family History Family History Maternal Grandmother HTN (hypertension) High cholesterol Maternal Grandfather HTN (hypertension) High cholesterol Diabetes Cirrhosis of liver Paternal Grandmother HTN (hypertension) Surgical History Surgical History Hx of ovarian cyst History of Problems with Anesthesia: No Social History Social History Household Members: Family Alcohol intake: never Patient Tobacco Use Status: Never used Tobacco Advance Directives: No Advance Directives Information Provided: Yes Meds Allergies Allergy/AdvReac Type Severity Reaction Status Date / Time No Known Allergies Allergy Verified 01/23/23 08:34 Active Medications: Current Medications Lactated Ringer's (Lr) 1,000 mls @ 100 mls/hr IVCONT .Q10H JAGUAR Last Admin: 02/12/23 12:44 Dose: 100 mls/hr Exam Exam Date and Time: February 12, 2023 1301 Height,Weight and Vital Signs: Height 5 ft 3 in Weight 90.718 kg Last Vital Signs Temp 98.1 F 02/12/23 12:18 Pulse 81 02/12/23 12:18 Resp 16 02/12/23 12:18 BP 119/65 02/12/23 12:18 Pulse Ox 97 02/12/23 12:18 O2 Del Method Room Air 02/12/23 12:18 Pertinent Lab Results Pertinent Lab Results: Laboratory Tests 02/12/23 12:23 Urine Test NEGATIVE Airway Mallampati Class: II TM Dist: >3cm Neck ROM: Full Loose/Missing/Broken Teeth: No Heart: RRR Lungs: CTA Assessment and Plan Assessment Anesthesia Assessment: Anesthesia Plan Discussed and Chart Reviewed Final Anesthetic Review History of Problems with Anesthesia: No NPO: Yes ASA Class: I Final Preanesthetic Review: Meds/Allgs Chart Reviewed, Consent Obtained/Reviewed and Anes Risks/Benef Reviewed Patient Risk: Low Procedure Risk: Intermediate Anesthetic Plan Anesthetic Plan: MAC: Disposition: Standard PACU
--- NOTE | 2023-02-12 13:08 | W.PM.OPN ---
Operative Note Operative Note Date of Service: 02/12/23 Narrative: FLEXIBLE TRANSORAL UPPER GASTROINTESTINAL ENDOSCOPY WITH BIOPSIES Pre-op diagnosis: Upper abdominal pain, constipation Post-op diagnosis: Gastritis, healing gastric ulcer Endoscopist:? Loreto Tamez MD Anesthesia:?MAC Consent: Indications for the procedure and potential complications of bleeding, perforation, reaction to medications and missed diagnosis were discussed with the patient and informed consent was obtained. Instrument: Olympus GIF H 190 mid size upper endoscope Monitoring: Vital signs and clinical assessment, continuous EKG monitoring, Pulse oximetry, Carbon Dioxide monitoring and blood pressure monitoring were done throughout the procedure. Procedure: The patient was placed in the left lateral decubitis position and pre-procedure medications were administered and a bite block was placed. The endoscope was inserted into the mouth and advanced under direct vision to the third part of duodenum. A careful inspection was made as the upper endoscope was withdrawn including a retroflexed examination of the proximal stomach; Findings and interventions are described below. Findings: Larynx: Normal Esophagus: GE junction at 36 cms. No esophagitis or Mann's. Stomach: A 7-8 mm ulcer in the pre-pyloric area which appears to be healing - biopsied. Mild gastric erythema. Biopsies were obtained to check for Helicobacter pylori. Grade 2 flap valve on retroflexed examination of the cardia. Duodenum: Normal bulb and descending duodenum. Biopsies were obtained from 3rd part of the duodenum to check for celiac sprue Intervention: Biopsies as noted above Impression and Post Procedure Diagnosis: Endoscopy Findings: STOMACH: A 7-8 mm ulcer in the pre-pyloric area which appears to be healing - biopsied. Mild gastric erythema. Biopsies were obtained to check for Helicobacter pylori. DUODENUM: Normal - biopsied to check for celiac sprue PUD ? related to NSAIDS - pt admits to taking Ibuprofen 1-2 times a week. Plan: Await pathology results Patient has an appointment on 02/20/23 in the GI Clinic with Chioma Huang FNP-BC. Above findings were reviewed with the patient and Peptic Ulcer Disease handout was given in the discharge area Pt reported she had a BM over the weekend with partial improvement in abdominal pain and was advised to continue taking Linzess and pantoprazole daily.
[2023-02-12 13:28] VITALS: BP 102/67; PULSE 112; RESP 18; TEMP 36.2; O2SAT 97
[2023-02-12 13:45] VITALS: BP 103/68; PULSE 61; RESP 17; TEMP 36.1; O2SAT 99
== END 2023-02-12 14:15 | disposition home or self-care (01) ==
PROVIDERS: Anesthesiology; Visit Provider Internal Medicine Gastroenterology
PROC: 0DJ08ZZ Inspection of Upper Intestinal Tract, Via Natural or Artificial Opening Endoscopic (ICD-10-PCS; CPT 43235; principal; 2023-02-12 14:10)
DX: K29.50 Unspecified chronic gastritis without bleeding (principal); K25.9 Gastric ulcer, unspecified as acute or chronic, without hemorrhage or perforation; N80.9 Endometriosis, unspecified; R74.8 Abnormal levels of other serum enzymes
CPT/HCPCS: 43239; 81025; 88305; 88342

== ENCOUNTER → 2023-02-12 11:55 | Outpatient (BNV) | payer BC, MEDICAID, SELFPAY | PROVIDERS: Visit Provider Internal Medicine Gastroenterology | DX: R10.10 Upper abdominal pain, unspecified (principal); K59.00 Constipation, unspecified; K29.70 Gastritis, unspecified, without bleeding; K31.7 Polyp of stomach and duodenum | CPT/HCPCS: 43239 ==

== ENCOUNTER → 2023-02-23 07:58 | Outpatient (REF) | payer BC, MEDICAID, SELFPAY ==
--- NOTE | ~2023-02-23 | NM_ITS ---
EXAMINATION: BILIARY TRACT IMAGING STUDY WITH CCK CLINICAL INFORMATION: Right upper quadrant abdominal pain.. COMPARISON: Right upper quadrant abdominal ultrasound done on 12/07/[address] scan of the abdomen and pelvis done on 08/13/2022.. TECHNIQUE: Serial gamma scintillation camera images were obtained over the abdomen for a total observation period of 60 minutes following the intravenous administration of 5 mCi Tc-99m mebrofenin. FINDINGS: There is good concentration of activity in the liver by 5 minutes post injection. Biliary activity is visualized by 10 minutes. The gallbladder is well visualized by 24 minutes. Small bowel is well visualized by 30 minutes. At 60 minutes post radiopharmaceutical injection, a 30-minute infusion of 1.8 micrograms Sincalide was then begun and an additional 30 minutes of images were obtained. There is good emptying of the gallbladder. By the end of the study there is good clearance of activity from the liver and visualization of diffuse small bowel activity. The calculated gallbladder ejection fraction is 54% (normal gallbladder ejection fraction is greater than 35%). NM/NM hepatobiliary w pharm IMPRESSION: Visualization of the gallbladder is evidence of a patent cystic duct and strong evidence against the diagnosis of acute cholecystitis. The common bile duct is patent. Gallbladder emptying and ejection fraction are normal. Liver function appears normal.
== END ==
LOC: HO.NUCMED 07:58
PROVIDERS: Visit Provider Nurse Practitioner Family
DX: R10.11 Right upper quadrant pain (principal)
CPT/HCPCS: 78227; A9537; J2805

== ENCOUNTER 2023-03-14 14:49 | Outpatient (AMB) | payer MEDICAID, SELFPAY ==
[2023-03-14 14:52] VITALS: BP 113/75; PULSE 89; BMI 35.3
--- NOTE | 2023-03-14 14:52 | A.OFFVIS_ITS ---
Intake Vital Signs 03/14/23 14:52 Height 5 ft 3 in Weight 199 lb 4.766 oz BMI 35.3 BP 113/75 Blood Pressure Location Lt brachial Position Sitting Pulse 89 Intake Visit Reasons: follow up for EGD Intake Note: Eitan presents in office as a est.patient for a post-op f/u for EGD pt got it done 8.7.23 PT CC: pt reports having abdominal pain , diarrhea, bloating pt denies any other GI Issues Malt Specifications Control Assistant Required: No Accompanied by: Self / Same As Patient Allergies No Known Allergies Allergy (Verified 03/14/23 14:53) HPI follow up for EGD HPI Details LAST VISIT RUQ abdominal pain Right-sided abdominal pain, however today patient reports that her pain is throughout the whole abdomen. Awaiting to get a HIDA scan, however I feel that her pain is related possibly to adhesions from to laparoscopic surgeries just few months ago. Patient was encouraged to side dicyclomine due to her decreased bowel mobility. Postprandial abdominal bloating Postprandial abdominal bloating most likely related to inability to move her bowels. Patient does have a positive bowel sounds in the left upper and left lower quadrant diminished in the right upper and right lower quadrant. Patient is passing gas able to have a small amount of stool, incomplete emptying for the last 4 days Mesenteric adenitis Mesenteric adenitis, reviewed results posted on patient's portal that and does not mention that, however patient instructions states that she does have a mesenteric adenitis. Patient's mother will try to get the results and CD from [facility]. Patient reports that provider spoke to radiologist on the phone about her results. If patient continues with pain she will need to return to emergency department especially if she is not going to have a bowel movement. Ileus Ileus was also reported on the CT scan. Secondary to pain or possibly due to adhesions that could be causing that as well. Patient will need to move her bowels better. Will start her on Reglan, patient is to be on clear liquid diet and take Reglan twice a day for the next couple days before meals. Patient will also take milk of magnesia and take Linzess. However patient was instructed to drink plenty fluids. Patient ready took Senokot in [place] and was unable to pass bowels. Patient was instructed that she must go to the emergency department if she is continuing to be nauseous and vomiting and is unable to pass gas. Chronic idiopathic constipation Chronic constipation, not on any actual daily management. I believe patient should be on something every day, however today she presents as more acute. Will need to take Reglan to help stimulate her small bowel avoid taking Zofran as that can contribute to constipation and could also cause ileus. Epigastric pain Patient continues with epigastric pain, however does not have any acid reflux or dyspepsia. Patient will be scheduled for upper endoscopy on Sunday. Continue pantoprazole Nausea and vomiting in adult Reglan twice a day, N/V most likely related to inability to pass her bowels, however it could be related to gastritis, patient is going for upper endoscopy on Sunday. Patient and her mom were instructed to return to emergency department if she continues to have nausea and vomiting, unable to keep any fluids down. Unable to move her bowels, decrease gas, increase bloating. Both patient and her mom are agreeable to plan of care and verbalize understanding of instructions. They were given the opportunity to ask questions and all questions answered. ? Thank you for allowing me to participate in her care Plan Medications New metoclopramide HCl (Reglan) Take 15 minutes before meals 5 mg PO BID PRN 10 tabs 0RF nausea and vomiting R11.0 linaclotide (Linzess) 145 mcg PO DAILY 30 caps 2RF UPPER ENDOSCOPY: Findings: Larynx:? Normal Esophagus: GE junction at 36 cms. No esophagitis or Mann's. Stomach: A 7-8 mm ulcer in the pre-pyloric area which appears to be healing - biopsied. Mild gastric erythema. Biopsies were obtained to check for Helicobacter pylori. Grade 2 flap valve on retroflexed examination of the cardia. Duodenum: Normal bulb and descending duodenum. Biopsies were obtained from 3rd part of the duodenum to check for celiac sprue Intervention: Biopsies as noted above Impression and Post Procedure Diagnosis: Endoscopy Findings: STOMACH: A 7-8 mm ulcer in the pre-pyloric area which appears to be healing - biopsied. Mild gastric erythema. Biopsies were obtained to check for Helicobacter pylori. DUODENUM: Normal - biopsied to check for celiac sprue PUD ? related to NSAIDS - pt admits to taking Ibuprofen 1-2 times a week. Plan: Await pathology results Patient has an appointment on 02/20/23 in the GI Clinic with ? Chioma uHang FNP-BC. Above findings were reviewed with the patient and Peptic Ulcer Disease handout was given in the discharge area Pt reported she had a BM over the weekend with partial improvement in abdominal pain and was advised to continue taking Linzess and pantoprazole daily. PATHOLOGY RESULTS: Diagnosis A.? Small bowel, biopsy:? Small bowel mucosa with preserved villi and no specific change; no evidence of celiac disease.? B.? Gastric antrum, biopsy:? Gastric antral mucosa with congestion, mild reactive changes and focal minimal chronic inactive inflammation; negative for H pylori, intestinal metaplasia and dysplasia. C.? Gastric ulcer, biopsy:? Gastric antral mucosa with reactive/regenerative changes and minimal chronic inactive gastritis, compatible with tissue adjacent to ulcer; negative for H pylori, intestinal metaplasia and dysplasia. TODAY'S VISIT: The patient is here today for follow-up and to discuss upper endoscopy results. Patient denies any ill effects from anesthesia or procedure itself. Patient reports to be feeling little better. Reports to have less epigastric discomfort postprandially. Patient continues to be taking omeprazole in the morning and sucralfate at bedtime. States that she is moving her bowels better now that she is taking Linzess. Patient reports however that she is not taking Linzess every day. Patient states that she is working and in school. Patient states that after taking Linzess she will have multiple bowel movement after so she was trying to avoid having any accidents. Patient reports occasional abdominal cramping when unable to empty her bowels completely. Patient states that she is taking less dicyclomine. About once or twice in 2 weeks. Patient states that she is trying to avoid dietary triggers. Trying her best following low FODMAP diet. Patient stopped taking oral contraceptives. Patient has an appointment with PCOS clinic in [place]. Patient reports that she gain lot of weight when she started taking the medications. Patient is hoping to lose some of the weight. [facility] Medical History Endometriosis Surgical History History of esophagogastroduodenoscopy (EGD) Hx of ovarian cyst Family History Maternal Grandmother HTN (hypertension) High cholesterol Maternal Grandfather HTN (hypertension) High cholesterol Diabetes Cirrhosis of liver Paternal Grandmother HTN (hypertension) Social History Household Members: Family Alcohol intake: never Patient Tobacco Use Status: Never used Tobacco Review of Systems Const Denies weight gain and Denies weight loss ENT Reports no additional complaints, Denies dysphagia and Denies odynophagia Card Reports no additional complaints Resp Reports no additional complaints GI Reports abdominal pain, Denies belching, Denies melena, Reports bloating, Denies dysphagia, Denies excessive flatus, Denies dyspepsia, Denies heartburn, Denies diarrhea, Reports loose stools, Denies nausea, Denies odynophagia and Denies vomiting Reports no additional complaints Musc Reports no additional complaints Neuro Reports no additional complaints Psych Reports no additional complaints Endo Reports no additional complaints Physical Exam Vital Signs: Last Vital Signs Pulse 89 03/14/23 14:52 BP 113/75 03/14/23 14:52 BMI result Body Mass Index 35.3 Const General: healthy appearing, no acute distress and well developed Nutritional Appearance: obese Orientation/consciousness: patient oriented x3 HEENT Head: Yes normal to inspection, Yes normocephalic and Yes atraumatic Face and sinus: Yes normal facial exam Mouth: Normal oral and palatal mucosa present Throat: Yes posterior oropharynx normal, Yes tonsils normal and Yes uvula midline Eyes General: appearance normal, both eyes and all related structures Neck Neck: Yes normal visual inspection, Yes full ROM and Yes trachea midline Thyroid: Thyroid normal Resp Effort & Inspection: normal respiratory effort, able to speak in complete sentences, no tracheal deviation and symmetric chest movement Auscultation: clear to auscultation bilaterally Cardio Rate: regular rate Heart sounds: S1 normal heart sound present and S2 normal heart sound present GI Inspection: Yes normal to inspection, No distended and Yes obesity Palpation (GI): Soft to palpation, not firm, nontender and No hepatosplenomegaly present Auscultation: normal bowel sounds General: Yes no CVA tenderness Back/Spine/Pelvis Back: no CVA tenderness Skin General skin exam: elasticity normal, turgor normal and dry skin Neuro General: patient oriented x3 Psych Appearance: grossly normal Mental Status: mental status grossly normal Speech and movement: Normal speech and movement present Assessment & Plan Assessment & Plan (1) Postprandial abdominal bloating: Code(s): R14.0 - Abdominal distension (gaseous) (2) Mesenteric adenitis: Code(s): I88.0 - Nonspecific mesenteric lymphadenitis (3) Ileus: Code(s): K56.7 - Ileus, unspecified (4) Chronic idiopathic constipation: Code(s): K59.04 - Chronic idiopathic constipation (5) Epigastric pain: Code(s): R10.13 - Epigastric pain (6) Nausea and vomiting in adult: Code(s): R11.2 - Nausea with vomiting, unspecified (7) Gastritis: Code(s): K29.70 - Gastritis, unspecified, without bleeding Plan Overall patient is doing better. Moving her bowels daily. Patient was encouraged to continue taking Linzess every day. Patient can take Citrucel 1 hour after taking Linzess to help bulk her stools. Patient was encouraged to increase fluid intake as well and activity to promote better bowel motility. Continue trying to lose weight. Patient is not nauseous. Reports that sucralfate and pantoprazole are helping. Continue avoiding dietary triggers and late night snacking. Staying upright for minimum 3 hours after meals discussed with patient. Patient will continue low-fat map diet. I will see patient in 3 months, sooner on as needed basis. Patient is agreeable to this plan and verbalizes understanding of instructions. She was given the opportunity to ask questions and all questions answered. Thank you for allowing me to participate in her care Medications: New methylcellulose (laxative) (Citrucel) take it with full glass of water 500 mg PO DAILY 90 tabs 2RF K59.00 - Constipation, unspecified sucralfate 1 g PO BEDTIME 90 tabs 2RF K21.9 - Gastro-esophageal reflux disease without esophagitis, K29.81 - Duodenitis with bleeding Discontinued metoclopramide HCl (Reglan) Take 15 minutes before meals Discontinued Reason: Patient Completed Course 5 mg PO BID PRN 10 tabs 0RF nausea and vomiting R11.0 - Nausea Coding Level of Care Code Est Pt Level 4 (93853) Diagnoses Postprandial abdominal bloating R14.0 Mesenteric adenitis I88.0 Ileus K56.7 Chronic idiopathic constipation K59.04 Epigastric pain R10.13 Nausea and vomiting in adult R11.2 Gastritis K29.70 Time Spent (min) 40 Comment 25 minutes spent with patient and additional 15 minutes spent reviewing her records
== END 2023-03-14 15:16 | disposition home or self-care (01) ==
PROVIDERS: Visit Provider Nurse Practitioner Family
DX: R14.0 Abdominal distension (gaseous) (principal); I88.0 Nonspecific mesenteric lymphadenitis; K56.7 Ileus, unspecified; K59.04 Chronic idiopathic constipation; R10.13 Epigastric pain; R11.2 Nausea with vomiting, unspecified; K29.70 Gastritis, unspecified, without bleeding
CPT/HCPCS: 99214

== ENCOUNTER → 2023-03-14 14:49 | Outpatient (BNVA) | payer BC, MEDICAID, SELFPAY | PROVIDERS: Visit Provider Nurse Practitioner Family | DX: R14.0 Abdominal distension (gaseous) (principal); I88.0 Nonspecific mesenteric lymphadenitis; K56.7 Ileus, unspecified; K59.04 Chronic idiopathic constipation; R10.13 Epigastric pain; R11.2 Nausea with vomiting, unspecified; K29.70 Gastritis, unspecified, without bleeding | CPT/HCPCS: 99212 ==